=== PATIENT | male | born 1980 | race Caucasian/White ===

== ENCOUNTER 2018-08-28 13:27 | Emergency (ER) | payer OTHER ==
[2018-08-28 14:16] LABS: #Basophils 0.1 thou/uL (0.0-0.2); #Eosinphils 0.1 thou/uL (0.0-0.7); #Lymphocytes 1.8 thou/uL (1.20-3.40); #Monocytes 0.3 thou/uL (0.11-0.59); #Neutrophils 3.5 thou/uL (1.40-6.50); %Basophils 1.6 % (0.0-1.0); %Eosinophils 1.6 % (0.0-10.0); %Lymphocytes 31.7 % (21.0-51.0); %Monocytes 4.4 % (0.0-10.0); %Neutrophils 60.7 % (42.0-75.0); Hemoglobin 14.6 g/dL (14.0-18.0); Mean Corpuscular HGB CONC 33.7 g/dL (32.0-36.0); Mean Corpuscular Hemoglobin 28.5 pg (27.0-31.0); Mean Corpuscular Volume 84.6 fL (78.0-98.0); Mean Platelet Volume 7.3 fL (7.4-10.4); Platelet Count 201 thou/uL (130-400); RBC Distribution Width 11.3 % (11.5-14.5); Red Blood Cell (RBC) Count 5.11 mill/uL (4.70-6.10); White Blood Cell (WBC) Count 5.7 thou/uL (4.8-10.8)
[2018-08-28] MEDS ORDERED: Morphine 4 MG/ML VIAL ONE (14:19)
[2018-08-28] MEDS ORDERED: Ondansetron PF 4 MG/2 ML Vial ONE (14:19)
[2018-08-28 14:27] LABS: ALT (SGPT) 29 U/L (8-55); AST (SGOT) 23 U/L (5-34); Albumin 4.2 g/dL (3.5-5.0); Alkaline Phosphatase 61 U/L (40-150); Anion Gap 14 mmol/L (10-20); BUN (Urea Nitrogen) 9 mg/dL (8.9-20.6); Bilirubin, Total 0.5 mg/dL (0.2-1.2); Calc. Creatinine Clearance 0 mL/min (70-130); Calcium 9.4 mg/dL (7.8-10.44); Carbon Dioxide 24 mmol/L (22-29); Chloride 107 mmol/L (98-107); Estimated GFR-MDRD 83; Globulin 2.6 g/dL (2.4-3.5); Glucose 144 mg/dL (70-105); Potassium 3.8 mmol/L (3.5-5.1); Protein, Total 6.8 g/dL (6.0-8.3); Sodium 141 mmol/L (136-145)
[2018-08-28 14:49] LABS: Bilirubin Negative (Negative); Blood, Urine Large (Negative); Glucose, Urine (Dipstick) Negative (Negative); Leukocyte Negative (Negative); Nitrite Negative (Negative); Protein, Urine (Dipstick) 30 mg/dL (Neg-Trace); Urobilinogen 0.2 mg/dL (0.2-1.0); pH, Urine 5.5 (5.0-9.0)
--- NOTE | 2018-08-28 14:50 | CT ---
CT ABDOMEN AND PELVIS WITHOUT CONTRAST: Date: 08/28/18 HISTORY: Left-sided flank pain, back pain and groin pain. FINDINGS: Absence of oral and IV contrast reduces the sensitivity of exam, particularly for evaluation of solid organs and bowel. The lung bases are clear. No free air or free fluid is seen in the abdomen or pelvis. No calculi seen in the kidneys, right ureter, or the urinary bladder. There is a 7.0 mm calculus in t he left distal ureter just proximal to the UVJ. There is dilatation of the left ureter and mild to mo derate left hydronephrosis. IMPRESSION: Obstructing 7.0 mm left distal ureteric calculus. POS: [facility]
[2018-08-28 14:51] LABS: Clarity Hazy (Clear); Specific Gravity, Urine 1.025 (1.002-1.036)
[2018-08-28 15:04] LABS: Bacteria/HPF 3+ HPF (None Seen); Squamous Epithelial 0-3 HPF (0-3); WBC/HPF None Seen HPF (0-3)
== END 2018-08-28 15:55 | disposition home or self-care (01) ==
LOC: SCSER 13:27
DX: N13.2 Hydronephrosis with renal and ureteral calculous obstruction (principal)
CPT/HCPCS: 74176; 80053; 81003; 81015; 85025; 87086; 96361; 96374; 96375; J2270; J2405

== ENCOUNTER 2018-09-01 10:34 | Outpatient (CLI) | payer OTHER ==
[2018-09-01 12:08] LABS: Hemoglobin 15.9 g/dL (14.0-18.0); Mean Corpuscular HGB CONC 33.3 g/dL (32.0-36.0); Mean Platelet Volume 7.4 fL (7.4-10.4); Platelet Count 251 thou/uL (130-400); RBC Distribution Width 11.5 % (11.5-14.5); Red Blood Cell (RBC) Count 5.29 mill/uL (4.70-6.10); White Blood Cell (WBC) Count 5.1 thou/uL (4.8-10.8)
[2018-09-01 12:14] LABS: INR-International Normal Ratio 1.1; PTT 30.5 SEC (22.9-36.1); Prothrombin Time 14.2 SEC (12.0-14.7)
[2018-09-01 12:21] LABS: Anion Gap 9 mmol/L (10-20); BUN (Urea Nitrogen) 10 mg/dL (8.9-20.6); Calc. Creatinine Clearance 0 mL/min (70-130); Calcium 9.6 mg/dL (7.8-10.44); Carbon Dioxide 30 mmol/L (22-29); Chloride 104 mmol/L (98-107); Estimated GFR-MDRD Greater than 90; Glucose 88 mg/dL (70-105); Potassium 4.6 mmol/L (3.5-5.1); Sodium 138 mmol/L (136-145)
== END 2018-09-01 10:35 | disposition home or self-care (01) ==
LOC: LABBT 10:34
PROVIDERS: ATTEND Urology
DX: Z01.812 Encounter for preprocedural laboratory examination (principal); N20.2 Calculus of kidney with calculus of ureter
CPT/HCPCS: 80048; 85027; 85610; 85730

== ENCOUNTER 2018-09-02 08:11 | Day surgery (SDC) | payer OTHER ==
[2018-09-01 11:00] VITALS: BMI 32.3
[2018-09-02] MEDS ORDERED: Levofloxacin 500 mg/D5W 100 ml Premix Bag ONE (09:51)
[2018-09-02] MEDS ORDERED: Fentanyl 100 MCG/2 ML VIAL ONE ×2 (11:20→13:25)
[2018-09-02] MEDS ORDERED: SUGAMMADEX SODIUM 500 MG/5 ML VIAL ONE (11:20)
[2018-09-02] MEDS ORDERED: Midazolam HCl 2 mg/2 ml Vial ONE (11:23)
[2018-09-02] MEDS ORDERED: Phenazopyridine HCl 97.5 MG TABLET ONE (12:43)
[2018-09-02] MEDS ORDERED: Iothalamate Meglumine 60% 50 ML VIAL FS ONE (12:53)
--- NOTE | 2018-09-02 14:46 | RAD ---
RETROGRADE IVP: Date; 09/02/18 COMPARISON: CT abdomen/pelvis dated 08/28/18. HISTORY: Left ureteral calcification. FINDINGS/IMPRESSION: Multiple limited intraoperative fluoroscopic views from a retrograde IVP were submitted for interpret ation. The initial images show a calcification in the left pelvis which represents the left distal ur eteral calcification. Eventually, a wire and then a double-J stent are placed and the calcification c annot be definitely identified. POS: [facility]
[2018-09-02] MEDS ORDERED: PROPOFOL 200 MG/20 ML VIAL ONE (17:04)
[2018-09-02] MEDS ORDERED: Ondansetron PF 4 MG/2 ML Vial ONE (17:04)
[2018-09-02] MEDS ORDERED: Lidocaine 1% PF 5 ML VIAL ONE (17:04)
[2018-09-02] MEDS ORDERED: Dexamethasone 20 MG/5 ML VIAL ONE (17:04)
--- NOTE | 2018-09-02 17:28 | OP ---
DATE OF PROCEDURE: 09/02/2018 PREOPERATIVE DIAGNOSIS: A 38-year-old male with history of left distal ureteral calculi, 7 mm non-progression. POSTOPERATIVE DIAGNOSIS: A 38-year-old male with history of left distal ureteral calculi, 7 mm non-progression. PROCEDURES PERFORMED: Cystoscopy, dilation of the left intramural ureter, rigid ureteroscopy, laser lithotripsy, basket extraction of stone fragments, 6 x 28 double-J ureteral stent placement with Dangler tape to penis. ANESTHESIA: General. COMPLICATIONS: None apparent. DISPOSITION: To recovery room in stable condition. SPECIMENS: Stone fragments for chemical analysis. INDICATIONS FOR PROCEDURE: Mr. Ly is a pleasant 38-year-old male, who presented to the emergency room last weekend due to left flank pain. The patient states that he has had intermittent flank pain for the last few weeks. Due to intractable pain, he presented to the emergency room, provided pain medication. Subsequently, his pain persists; however, requires tramadol around the clock. He denies nausea, vomiting, or fever. He desires to proceed with ureteroscopy, laser lithotripsy due to non-progression. I did inform the patient regarding options of medical expulsion therapy as this stone is just proximal to the UVJ. He desired to proceed with surgical intervention, as he has had flank pain for a few weeks. Risks and complications and indications for the procedure were reviewed including, but not limited to, bleeding, pain, infection, injury to adjacent organs, urosepsis, uretero-urethral stricture, bladder injury. Possible secondary procedure was reviewed with him in detail and he desired to proceed without reservation. DESCRIPTION OF PROCEDURE: After an informed consent was signed, the patient was taken to the operating room, placed in the dorsal lithotomy position with the genital area prepped and draped in the usual surgical sterile fashion. A 21-Ukrainian cystoscope was utilized for cystoscopy, which demonstrated normal anterior and posterior urethra with no evidence of urethral stricture. Nonobstructing prostate was noted. The bladder was entered, which demonstrated normal bladder mucosa. The ureteral orifices were identified in normal orthotopic position. At this time, a 5-Ukrainian open-ended catheter was utilized to intubate the left UO. I can see the stone and the fluoroscopy approximately 3 to 4 cm proximal to the UVJ. The 0.35 Sensor wire was able to be negotiated proximal to the stone without difficulty. Using a 12-Ukrainian, 4 cm balloon dilator, we dilated the intramural ureter just distal to the stone on fluoroscopy. Pressure was held for a few minutes and we then subsequently deflated the balloon. At this time, we transitioned to a rigid ureteroscope. I was able to engage to see the stone; however, that the stone appeared to be obstructing and somewhat adherent to the ureteral mucosa. Using a 365 micron laser fiber, we laser lithotripsied the stone in dust setting. When the stone was small enough, we were able to see the lumen proximal to the ureteral stone. The stone was fragmented into multiple tiny pieces, most of the stone debris passed to the bladder, which he will subsequently urinate. There was a larger nidus that was laser lithotripsied to render free, and using a ZeroTip Nitinol basket, this was retrieved with the basket extraction atraumatically and sent for chemical analysis. Repeat ureteroscopy demonstrated no evidence of ureteral perforation, there was some bullous edema where the stone was obstructing and adherent. I did not see any further stone nidus of concern. At this time, a 6 x 28 double-J ureteral stent was passed over the existing wire and removed subsequently. As there was endoscopic clearance, the stent was left on Dangler. Bladder was emptied and the Dangler taped to patient's pubic symphysis. He was discharged with short course of [place] 5/325, ciprofloxacin #14 one p.o. b.i.d. for seven days, Azo p.r.n., Colace 100 mg one p.o. b.i.d. He has a prescription of Flomax at home, which he should continue. Return to clinic next for stent pull on Dangler. Job ID: [id number]
[2018-09-08 14:29] LABS: CA Oxalate Dihydrate 20 % (.); CA Oxalate Monohydrate 65 % (.); CA Phosphate 15 % (.); Color Tan (.); Stone Size 4x4x3 mm (.); Stone Weight 22.8 mg (.)
== END 2018-09-02 15:10 | disposition home or self-care (01) ==
LOC: SDC 08:11
PROVIDERS: ATTEND Urology
PROC: 0T778DZ Dilation of Left Ureter with Intraluminal Device, Via Natural or Artificial Opening Endoscopic (ICD-10-PCS; principal; 2018-09-02)
PROC: 0TF78ZZ Fragmentation in Left Ureter, Via Natural or Artificial Opening Endoscopic (ICD-10-PCS; principal; 2018-09-02)
DX: N20.1 Calculus of ureter (principal); Z87.891 Personal history of nicotine dependence; Z79.899 Other long term (current) drug therapy; Z88.8 Allergy status to other drugs, medicaments and biological substances
CPT/HCPCS: 74420; 82365; 88300; C1758; C1769; J1100; J1956; J2001; J2250; J2405; J2704; J3010; Q9961

== ENCOUNTER 2021-02-27 17:30 | Outpatient (CLI) | payer BC, OTHER | END 2021-02-27 17:31 | disposition home or self-care (01) | LOC: SLEEPLAB 17:30 | PROVIDERS: ATTEND Family Medicine | DX: G47.33 Obstructive sleep apnea (adult) (pediatric) (principal); R51.9 Headache, unspecified; E66.9 Obesity, unspecified; K21.9 Gastro-esophageal reflux disease without esophagitis; R06.83 Snoring; G47.00 Insomnia, unspecified; Z68.33 Body mass index [BMI] 33.0-33.9, adult | CPT/HCPCS: 95806 ==